=== PATIENT | male | born 1960 | race Asian ===

== ENCOUNTER 2016-07-08 20:30 | Emergency (ER) | payer BC, OTHER ==
[2016-07-08 21:42] LABS: BASO % 1 % (0-3); EOS % 2 % (0-3); HEMATOCRIT 46.2 % (39.0-53.0); HEMOGLOBIN 15.3 g/dL (13.0-17.5); LYMPH # 1.5 x10^3/uL (1.0-4.8); LYMPH % 33 % (24-48); MEAN CORPUSCULAR HEMOGLOBIN 30 pg (25-35); MEAN CORPUSCULAR HGB CONC 33 g/dL (31-37); MEAN CORPUSCULAR VOLUME 89 fL (79-100); MONO % 19 % (0-9); NEUT % 45 % (31-73); PLATELET COUNT 178 x10^3/uL (140-400); RED BLOOD COUNT 5.18 x10^6/uL (4.30-5.70); WHITE BLOOD COUNT 4.4 x10^3/uL (4.0-11.0)
[2016-07-08 21:55] LABS: CREATININE 1.2 mg/dL (0.7-1.3); GFR 63.1; POTASSIUM 3.8 mmol/L (3.5-5.1)
[2016-07-08 21:58] LABS: % BASOS 1 % (0-3); % EOS 1 % (0-5)
[2016-07-08] MEDS ORDERED: ACETAMINOPHEN 500 MG TABLET PO ONE (22:00)
[2016-07-08] MEDS ORDERED: LABETALOL 20 MG/4 ML DISP.SYRIN. IVP ONE (22:00)
[2016-07-08 22:03] LABS: PLT ESTIMATE ADEQUATE (ADEQUATE)
--- NOTE | 2016-07-08 22:40 | RAD ---
PROCEDURE CT head without contrast. HISTORY Dizziness and hypertension. TECHNIQUE Noncontrast CT head was obtained. One or more of the following individualized dose reduction techniques were utilized for this exam: 1. Automated exposure control. 2. Adjustment of the mA and/or kV according to patient's size. 3. Use of iterative reconstruction technique. COMPARISON None. FINDINGS The ventricles and sulci are within normal limits for age. There is no acute intracranial hemorrhage or extra-axial fluid collection. There is no mass effect or midline shift. Irby-white differentiation is preserved. There is mucosal thickening or debris in the right maxillary sinus. IMPRESSION No acute intracranial findings. Electronically signed by: Alcon Caruso MD (Jul 08, 2016 22:38:47)
--- NOTE | 2016-07-08 23:24 | PHYS DOC ---
Past Medical History Past Medical History: Hypertension, Other Additional Past Medical Histor: non-compliant with meds Past Surgical History: No Surgical History Alcohol Use: None Drug Use: None Adult General Chief Complaint Chief Complaint: HEADACHE HPI HPI Patient is a 56 year old female who presents with dizziness, headache. Patient reports since this morning he has had a mild headache, mostly in the back of his head. He also felt a little bit dizzy. No fever. No cough. No clear inciting or mitigating factors. Patient noted be hypertensive in ED. Although he has history of hypertension, he has not been taking any medications for it. No other acute complaints. Review of Systems Review of Systems Constitutional: Denies fever or chills Eyes: Denies change in visual acuity or eye pain HENT: Denies nasal congestion or sore throat Respiratory: Denies cough or shortness of breath Cardiovascular: Denies chest pain GI: Denies abdominal pain, nausea, vomiting, bloody stools or diarrhea : Denies dysuria or hematuria Musculoskeletal: Denies back pain or joint pain Integument: Denies rash or skin lesions Neurologic: Dizzy, mild posterior headache. Denies focal weakness or sensory changes Current Medications Current Medications Current Medications Medications (Trade) Dose Ordered Sig/Gilbert Start Time Stop Time Status Last Admin Dose Admin Acetaminophen (Tylenol) 1,000 mg 1X ONCE 07/08/16 22:00 07/08/16 22:01 DC 07/08/16 21:54 1,000 MG Amlodipine Besylate (Norvasc) 5 mg 1X ONCE 07/08/16 23:30 07/08/16 23:31 DC 07/08/16 23:30 5 MG Ibuprofen (Motrin) 600 mg 1X ONCE 07/08/16 23:30 07/08/16 23:31 DC 07/08/16 23:29 600 MG Labetalol HCl (Normodyne) 20 mg 1X ONCE 07/08/16 22:00 07/08/16 22:01 DC 07/08/16 21:56 20 MG Allergies Allergies Allergies Coded Allergies Type Severity Reaction Last Updated Verified No Known Drug Allergies 03/11/16 No Physical Exam Physical Exam Constitutional: Well developed, well nourished, no acute distress, non-toxic appearance HENT: Normocephalic, atraumatic, bilateral external ears normal Eyes: PERRL, EOMI, conjunctiva normal, no discharge Neck: Normal range of motion, no stridor Cardiovascular: Heart rate normal, regular rhythm, no murmur Lungs & Thorax: Bilateral breath sounds clear to auscultation Abdomen: Bowel sounds normal, soft, non-distended, no TTP Skin: Warm, dry, no erythema, no rash Extremities: No obvious deformity, no edema Neurologic: Alert and oriented X 3, GCS 15, CN II-XII grossly intact, strength intact and symmetrical throughout, sensation to light touch intact throughout, no dystaxia noted Current Patient Data Vital Signs Vital Signs Date Time Temp Pulse Resp B/P Pulse Ox O2 Delivery O2 Flow Rate FiO2 07/08/16 23:37 80 18 156/100 98 Room Air 07/08/16 20:40 97.4 97.4 Lab Values Laboratory Tests Test 07/08/16 21:15 White Blood Count 4.4x10^3/uL (4.0-11.0) Red Blood Count 5.18x10^6/uL (4.30-5.70) Hemoglobin 15.3g/dL (13.0-17.5) Hematocrit 46.2% (39.0-53.0) Mean Corpuscular Volume 89fL (79-100) Mean Corpuscular Hemoglobin 30pg (25-35) Mean Corpuscular Hemoglobin Concent 33g/dL (31-37) Red Cell Distribution Width 13.0% (11.5-14.5) Platelet Count 178x10^3/uL (140-400) Neutrophils (%) (Auto) 45% (31-73) Lymphocytes (%) (Auto) 33% (24-48) Monocytes (%) (Auto) 19% (0-9) H Eosinophils (%) (Auto) 2% (0-3) Basophils (%) (Auto) 1% (0-3) Neutrophils # (Auto) 2.0x10^3uL (1.8-7.7) Lymphocytes # (Auto) 1.5x10^3/uL (1.0-4.8) Monocytes # (Auto) 0.8x10^3/uL (0.0-1.1) Eosinophils # (Auto) 0.1x10^3/uL (0.0-0.7) Basophils # (Auto) 0.0x10^3/uL (0.0-0.2) Segmented Neutrophils % 41% (35-66) Lymphocytes % 39% (24-48) Monocytes % 18% (0-10) H Eosinophils % 1% (0-5) Basophils % 1% (0-3) Platelet Estimate Adequate (ADEQUATE) Sodium Level 140mmol/L (136-145) Potassium Level 3.8mmol/L (3.5-5.1) Chloride Level 105mmol/L (98-107) Carbon Dioxide Level 28mmol/L (21-32) Anion Gap 7 (6-14) Blood Urea Nitrogen 28mg/dL (8-26) H Creatinine 1.2mg/dL (0.7-1.3) Estimated GFR (Cockcroft-Gault) 63.1 Glucose Level 110mg/dL (70-99) H Calcium Level 9.0mg/dL (8.5-10.1) Laboratory Tests 07/08/16 21:15 Laboratory Tests 07/08/16 21:15 EKG EKG EKG (my read): sinus rhythm, rate 95, normal axis, intervals wnl, nonspecific ST changes Radiology/Procedures Radiology/Procedures CT head: IMPRESSION No acute intracranial findings. Course & Med Decision Making Course & Med Decision Making Pertinent Labs and Imaging studies reviewed. (See chart for details) Patient is 56-year-old male who presents with mild headache, dizziness. Suspect symptoms related to hypertension. Will check CT head, EKG, labs to evaluate. Acetaminophen and blood pressure medication ordered. Imaging results as above. EKG okay per my read. Labs largely unremarkable. Discussed results with patient and family. Additional blood pressure medication given to control overnight. Discussed the importance of following up with primary care physician to discuss possible blood pressure medication. Will discharge home with instructions for close follow-up, strict return precautions. Dragon Disclaimer Dragon Disclaimer This electronic medical record was generated, in whole or in part, using a voice recognition dictation system. Departure Departure Impression: Primary Impression: Hypertension Additional Impression: Headache Disposition: HOME, SELF-CARE Condition: IMPROVED Referrals: NO PCP (PCP) Patient Instructions: Headache, FAQs, Hypertension Additional Instructions: Thank you for allowing us to provide care today in the Emergency Department. Schedule a follow up appointment with your primary care doctor. Return promptly to the Emergency Department if you develop any new or concerning symptoms, such as worsening headache. Problem Qualifiers TIBURCIO COLEMAN MD Jul 08, 2016 23:24
[2016-07-08] MEDS ORDERED: IBUPROFEN 600 MG TABLET. PO ONE (23:30)
[2016-07-08] MEDS ORDERED: AMLODIPINE BESYLATE 5 MG TABLET PO ONE (23:30)
[2016-07-08 23:37] VITALS: BP 156/100
--- NOTE | 2016-07-09 06:30 | EKG ---
[facility] [address] [place] [id number] Test Date: 2016-07-08 Test Time: 21:39:51 Pat Name: HEMAL SOARES Department: Room: Gender: M [employer] Lathe Set Up Operator: : [id number] Requested By: TIBURCIO COLEMAN Order Number: [id number] Reading MD: Measurements Intervals [place] Rate: 95 P: 44 NM: 170 QRS: 36 QRSD: 94 T: 20 QT: 336 QTc: 425 Interpretive Statements SINUS RHYTHM QRS(T) CONTOUR ABNORMALITY CONSIDER ANTEROSEPTAL MYOCARDIAL DAMAGE POSSIBLY ABNORMAL ECG RI6.01 No previous ECG available for comparison
== END 2016-07-08 23:39 | disposition home or self-care (01) ==
LOC: ER 20:30
DX: I10 Essential (primary) hypertension (principal); R51 Headache
CPT/HCPCS: 36415; 70450; 80048; 85007; 85027; 93005; 96374; 99285; J3490